=== PATIENT | female | born 1975 | race Caucasian/White ===

== ENCOUNTER 2018-02-14 16:17 | Emergency (ER) | payer MEDICAID ==
[~2018-02-14] VITALS: Ht 154.9 cm; Wt 59.9 kg
[2018-02-14 16:21] VITALS: BP 120/86; Ht 154.9 cm; Wt 59.9 kg
[2018-02-14 17:32] LABS: BASOPHIL % 0.6 % (0-2); PLATELET COUNT 262 x10^3mcL (130-400)
[2018-02-14 17:36] LABS: CALCIUM 8.4 mg/dL (8.5-10.1); CARBON DIOXIDE 25.8 mmol/L (21-32); CHLORIDE SERUM 109 mmol/L (98-107); CREATININE SERUM 0.6 mg/dL (0.6-1.0); GFR1 > 60 mL/min; GLUCOSE SERUM 89 mg/dL (74-106); POTASSIUM SERUM 3.4 mmol/L (3.5-5.1); SODIUM SERUM 141 mmol/L (136-145)
[2018-02-14 17:41] LABS: ALBUMIN 3.7 g/dL (3.4-5.0); ALKALINE PHOSPHATASE 53 U/L (46-116); ALT/SGPT 20 U/L (14-59); AST/SGOT 19 U/L (15-37); BILIRUBIN TOTAL 0.4 mg/dL (0.20-1.00); LIPASE 110 IU/L (73-393); TOTAL PROTEIN, SERUM 7.7 g/dL (6.4-8.2)
== END 2018-02-14 19:09 | disposition home or self-care (01) ==
LOC: ED 16:17
PROVIDERS: Emergency Medicine
DX: R10.11 Right upper quadrant pain (principal)
CPT/HCPCS: 36415; Q0092

== ENCOUNTER 2018-09-09 15:22 | Emergency (ER) | payer SELFPAY ==
[~2018-09-09] VITALS: Ht 157.5 cm; Wt 59.9 kg
[2018-09-09 15:28] VITALS: Ht 157.5 cm; Wt 59.9 kg
[2018-09-09 19:40] VITALS: BP 127/77
== END 2018-09-09 19:40 | disposition home or self-care (01) ==
LOC: ED 15:22
DX: J20.9 Acute bronchitis, unspecified (principal); R07.89 Other chest pain; Z91.018 Allergy to other foods
CPT/HCPCS: J0171; J1885; J2930; J7030; J7613; J7644